=== PATIENT | female | born 1990 | race Caucasian/White ===

== ENCOUNTER 2020-07-13 02:01 | Emergency (ER) | payer MEDICAID ==
[~2020-07-13] VITALS: Ht 165.1 cm; Wt 59.1 kg
[~2020-07-13 02:01] MED LIST: NICO-631 TD; PER5325T PO
[2020-07-13 02:08] VITALS: BP 127/66
[2020-07-13] MEDS ORDERED: proparacaine 0.5% ophthalmic drops 15ml RIGHTEYE ONE (02:25)
[2020-07-13] MEDS ORDERED: proparacaine 0.5% ophthalmic drops 15ml ONE (02:28)
== END 2020-07-13 03:14 | disposition home or self-care (01) ==
LOC: ER 02:02
DX: H10.9 Unspecified conjunctivitis (principal); L03.211 Cellulitis of face; G89.29 Other chronic pain; F41.9 Anxiety disorder, unspecified; F17.200 Nicotine dependence, unspecified, uncomplicated; F12.90 Cannabis use, unspecified, uncomplicated; F15.90 Other stimulant use, unspecified, uncomplicated; F11.90 Opioid use, unspecified, uncomplicated; Z59.0 Homelessness; Z79.899 Other long term (current) drug therapy
CPT/HCPCS: 99283

== ENCOUNTER 2020-08-18 05:57 | Emergency (ER) | payer MEDICAID | END 2020-08-18 06:06 | disposition left against medical advice (07) | LOC: ER 05:57 | DX: R05 Cough (principal); Z53.21 Procedure and treatment not carried out due to patient leaving prior to being seen by health care provider ==

== ENCOUNTER 2020-08-23 22:00 | Emergency (ER) | payer MEDICAID ==
[~2020-08-23] VITALS: Ht 167.6 cm; Wt 59.3 kg
[2020-08-23 22:04] VITALS: BP 136/82
[2020-08-23] MEDS ORDERED: azithromycin 250mg tablet PO ONE (22:30)
[2020-08-23] MEDS ORDERED: CefTRIAXone 250MG IM Kit w/LIDOcaine IM ONE (22:30)
[2020-08-23] MEDS ORDERED: DOXY100C76 PO (23:01)
== END 2020-08-24 00:11 | disposition home or self-care (01) ==
LOC: ER 22:00
DX: L03.031 Cellulitis of right toe (principal); J02.9 Acute pharyngitis, unspecified; M79.674 Pain in right toe(s); R49.1 Aphonia; F12.90 Cannabis use, unspecified, uncomplicated; F15.90 Other stimulant use, unspecified, uncomplicated; F11.90 Opioid use, unspecified, uncomplicated; Z11.3 Encounter for screening for infections with a predominantly sexual mode of transmission; Z59.0 Homelessness; Z79.2 Long term (current) use of antibiotics; Z79.899 Other long term (current) drug therapy
CPT/HCPCS: 36415; 86592; 96372; 99283; J0696

== ENCOUNTER 2021-01-13 10:07 | Emergency (ER) | payer MEDICAID ==
[~2021-01-13] VITALS: Ht 165.1 cm; Wt 61.5 kg
[2021-01-13 10:13] VITALS: BP 107/69
[2021-01-13] MEDS ORDERED: PENICILLIN G BENZATHINE 2,400,000 UNIT/4 ML SYRINGE IM STA ×2 (10:48→11:33)
[2021-01-13] MEDS ORDERED: CefTRIAXone 1000mg IM Kit (w/lidocaine diluent) IM STA (10:48)
--- NOTE | 2021-01-13 11:15 | NUR ---
TESTED AT [facility] AND WAS POSITIVE FOR SYPHILLIS
[2021-01-13 11:16] LABS: URINE HCG NEGATIVE (NEG)
== END 2021-01-13 12:46 | disposition home or self-care (01) ==
LOC: ER 10:08
DX: A53.9 Syphilis, unspecified (principal); F17.200 Nicotine dependence, unspecified, uncomplicated; F12.90 Cannabis use, unspecified, uncomplicated; F11.90 Opioid use, unspecified, uncomplicated; Z11.3 Encounter for screening for infections with a predominantly sexual mode of transmission; Z59.0 Homelessness; Z79.899 Other long term (current) drug therapy
CPT/HCPCS: 36415; 81025; 87491; 87591; 96372; 99284; J0561; J0696

== ENCOUNTER 2021-01-22 05:42 | Emergency (ER) | payer MEDICAID ==
[~2021-01-22] VITALS: Ht 165.1 cm; Wt 61.8 kg
[2021-01-22 05:47] VITALS: BP 121/73
[2021-01-22] MEDS ORDERED: azithromycin 250mg tablet PO ONE (06:15)
== END 2021-01-22 06:57 | disposition home or self-care (01) ==
LOC: ER 05:43
DX: A64 Unspecified sexually transmitted disease (principal); G89.29 Other chronic pain; F12.90 Cannabis use, unspecified, uncomplicated; F15.90 Other stimulant use, unspecified, uncomplicated; F11.90 Opioid use, unspecified, uncomplicated; Z59.0 Homelessness; Z79.899 Other long term (current) drug therapy
CPT/HCPCS: 36415; 87491; 99283

== ENCOUNTER 2022-07-01 19:50 | Emergency (ER) | payer MEDICAID ==
[~2022-07-01] VITALS: Ht 165.1 cm; Wt 61.4 kg
[2022-07-01 20:04] VITALS: BP 108/65
[2022-07-01 20:45] LABS: URINE HCG NEGATIVE (NEG)
[2022-07-01 20:50] LABS: CLARITY,URINE SLIGHTLY CLOUDY (Clear); COLOR,URINE YELLOW (Yellow); GLUCOSE, URINE NEGATIVE (Neg); KETONES,URINE TRACE mg/dl (Neg); LEUKOCYTE ESTERASE ,URINE NEGATIVE (Neg); NITRITES, URINE NEGATIVE (Neg); OCCULT BLOOD,URINE NEGATIVE (Neg); PROTEIN,URINE 100 mg/dl (Neg); UROBILINOGEN,URINE 0.2 E.U/dL (0.2-1.0)
[2022-07-01 20:50] LABS: BASOPHILS % (AUTO) 0.3 % (0-1); EOSINOPHILS % (AUTO) 0 % (0-6); HEMATOCRIT 43.3 % (35.0-45.0); HEMOGLOBIN 14.7 g/dl (12.0-16.0); LYMPHOCYTES # (AUTO) 0.8 X10'3 (1.1-4.8); LYMPHOCYTES % (AUTO) 11.3 % (21-51); MEAN CORPUSCULAR HEMOGLOBIN 28.8 PG (27.0-31.0); MEAN CORPUSCULAR HGB CONC 33.9 g/dL (33.0-36.5); MEAN CORPUSCULAR VOLUME 84.9 FL (78-98); MEAN PLATELET VOLUME 8.3 FL (7.4-10.4); MONOCYTES # (AUTO) 0.4 X10'3 (0-0.9); MONOCYTES % (AUTO) 5.9 % (2-12); NEUTROPHILS # (AUTO) 6.1 X10'3 (1.8-7.7); NEUTROPHILS % (AUTO) 82.5 % (42-75); PLATELET COUNT 307 X10'3 (140-440); RED CELL DISTRIBUTION WIDTH 13.4 % (11.5-14.5); WHITE BLOOD COUNT 7.3 X10'3 (4.5-11.0)
[2022-07-01 20:56] LABS: UA COLLECTION TYPE CLN CATCH MIDSTREAM
[2022-07-01 20:57] LABS: ALANINE AMINOTRANSFERASE 27 U/L (12-78); ALBUMIN 3.6 G/DL (3.4-5.0); ALBUMIN/GLOBULIN RATIO 0.8 (1.1-1.5); ALKALINE PHOSPHATASE 86 IU/L (46-116); ANION GAP 11 (8-16); ASPARTATE AMINO TRANSFERASE 32 U/L (10-37); BILIRUBIN,TOTAL 0.3 MG/DL (0.1-1.0); BLOOD UREA NITROGEN 17 MG/DL (7-18); BUN/CREATININE RATIO 14.8 (6.6-38.0); CALCIUM 8.7 MG/DL (8.5-10.1); CHLORIDE 97 MMOL/L (99-107); CREATININE 1.15 MG/DL (0.40-0.90); GLUCOSE 114 MG/DL (70-104); LIPASE < 50 U/L (73-393); POTASSIUM 3.3 MMOL/L (3.5-5.1); SODIUM 134 MMOL/L (135-145); TOTAL CARBON DIOXIDE 26.1 MMOL/L (24-32); TOTAL PROTEIN 7.9 G/DL (6.4-8.2); eGFR 54 ML/MIN
[2022-07-01 20:58] LABS: BACTERIA,URINE FEW /HPF (Neg); HYALINE CASTS 0-3 /LPF (NEGATIVE); MUCUS STRANDS MODERATE /LPF (Neg); RBC,URINE 0-2 /HPF (0-2); SQUAMOUS EPITHELIAL CELL,UR FEW /LPF (FEW); WBC,URINE 0-4 /HPF (0-4)
[2022-07-01] MEDS ORDERED: loperamide 2mg capsule PO ONE (22:10)
--- NOTE | 2022-07-01 22:22 | NUR ---
PO MED GIVEN
[2022-07-01] MEDS ORDERED: levoFLOXACIN 750MG TABLET PO ONE (22:45)
[2022-07-01] MEDS ORDERED: LEVO-65 PO (22:53)
[2022-07-01] MEDS ORDERED: ALBU6.7H9 INH (22:53)
[2022-07-01] MEDS ORDERED: PRED20TA PO (22:53)
--- NOTE | 2022-07-01 22:59 | NUR ---
PO MED GIVEN
== END 2022-07-01 23:00 | disposition home or self-care (01) ==
LOC: ER 19:51
DX: B34.9 Viral infection, unspecified (principal); R19.7 Diarrhea, unspecified; J18.9 Pneumonia, unspecified organism
CPT/HCPCS: 36415; 71045; 80053; 81001; 81025; 83690; 85025; 87088; 99284